=== PATIENT | male | born 1960 | race Caucasian/White ===

== ENCOUNTER 2018-06-13 10:22 | Emergency (ER) | payer OTHER ==
[~2018-06-13] VITALS: Ht 177.8 cm; Wt 108.9 kg
[~2018-06-13 10:22] MED LIST: ADULT ASPIRIN81 MG; CATAFLAM50 MG PO; CIPRO500 MG PO; CRESTOR5 MG; DEPAKOTE ER500 MG; ENALAPRIL MALEA10 MG; INTESTINEX1 CA1 PO; PERCOCET 5/3251 TAB PO; POLY119PG PO; RECTICARE30 GM TP; VIMPAT200 MG; ZOLOFT50 MG
[2018-06-13] MEDS ORDERED: KEPPRA500 MG PO (11:03)
[2018-06-13] MEDS ORDERED: TAMS0.4C PO (11:04)
[2018-06-13] MEDS ORDERED: DITROPAN XL10 MG PO (11:06)
[2018-06-13] MEDS ORDERED: IBUPROFEN800 MG PO ×2 (14:47→14:53)
[2018-06-13] MEDS ORDERED: DIAZEPAM10 MG PO ×2 (14:47→14:53)
== END 2018-06-13 15:10 | disposition home or self-care (01) ==
LOC: ER 10:22
DX: M54.31 Sciatica, right side (principal)